=== PATIENT | female | born 1945 | race Caucasian/White ===

== ENCOUNTER 2018-01-16 10:07 | Emergency (ER) | payer MEDICARE, BC ==
--- NOTE | 2018-01-16 12:30 | EDM.PDOC ---
ED HPI GENERAL MEDICAL PROBLEM - General Chief Complaint: General Stated Complaint: KNEE PAIN Time Seen by Provider: 01/16/18 10:35 Source of Information: Reports: Patient History Limitations: Reports: No Limitations - History of Present Illness INITIAL COMMENTS - FREE TEXT/NARRATIVE: Patient is a 72 year old woman who got up from a chair last night and her right knee gave out on her and locked up on her. It is sore and it feels like her knee cap is out of place. There was no trauma to the knee and she has no other complaints. 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 Medication(s) Other Treatments WAREHOUSE ORDER SELECTOR: aleve right knee Pain Score (Numeric/FACES): 2 - Related Data Allergies Allergy/AdvReac Type Severity Reaction Status Date / Time aspirin Allergy Mild Headache Verified 01/16/18 10:42 chondroitin sulfate A Allergy Mild Rash Verified 01/16/18 10:42 [From DuoVisc Visco Elastic] hyaluronic acid Allergy Mild Rash Verified 01/16/18 10:42 [From DuoVisc Visco Elastic] Latex, Natural Rubber Allergy Mild Rash Verified 01/16/18 10:42 Home Meds: Home Meds Acetaminophen [Tylenol Arthritis] 650 mg PO DAILY 02/28/16 [History] Calcium Carbonate/Vitamin D3 [Calcium 500 + Vit D 400] 1 each PO DAILY 02/28/16 [History] Multivit-Min/FA/Lycopene/Lut [Senior Tabs] 1 each PO DAILY 02/28/16 [History] Omeprazole 20 mg PO DAILY 02/28/16 [History] Sennosides [Senna] 1 tab PO BID PRN 02/28/16 [History] Triamterene/Hydrochlorothiazid [Triamterene-HCTZ 37.5-25 MG] 1 each PO DAILY [History] ED ROS GENERAL - Review of Systems Review Of Systems: See Below Constitutional: Reports: No Symptoms HEENT: Reports: No Symptoms Respiratory: Reports: No Symptoms Cardiovascular: Reports: No Symptoms Endocrine: Reports: No Symptoms GI/Abdominal: Reports: No Symptoms : Reports: No Symptoms Musculoskeletal: Reports: Joint Pain Skin: Reports: Wound (Left leg) Neurological: Reports: No Symptoms Psychiatric: Reports: No Symptoms ED EXAM, GENERAL - Physical Exam Exam: See Below Exam Limited By: No Limitations General Appearance: Alert, WD/WN, No Apparent Distress Eye Exam: Bilateral Eye: EOMI, Normal Fundi, Normal Inspection Ears: Normal External Exam, Normal Canal, Hearing Grossly Normal, Normal TMs Ear Exam: Bilateral Ear: Auricle Normal, Canal Normal, TM normal Nose: Normal Inspection, Normal Mucosa, No Blood Throat/Mouth: Normal Inspection, Normal Lips, Normal Teeth, Normal Gums, Normal Oropharynx, Normal Voice, No Airway Compromise Head: Atraumatic, Normocephalic Neck: Normal Inspection, Supple, Non-Tender, Full Range of Motion Respiratory/Chest: No Respiratory Distress, Lungs Clear, Normal Breath Sounds, No Accessory Muscle Use, Chest Non-Tender Cardiovascular: Normal Peripheral Pulses, Regular Rate, Rhythm, No Edema, No Gallop, No JVD, No Murmur, No Rub GI/Abdominal: Normal Bowel Sounds, Soft, Non-Tender, No Organomegaly, No Distention, No Abnormal Bruit, No Mass Extremities: Leg Pain (Right knee), Limited Range of Motion (Right knee with crepitus.) Neurological: Alert, Oriented, CN II-XII Intact, Normal Cognition, Normal Gait, Normal Reflexes, No Motor/Sensory Deficits Psychiatric: Normal Affect, Normal Mood Course - Vital Signs Text/Narrative:: Uneventful ED course. Her right knee x-ray showed no obvious fracture on my initial reading. She was put into an rafael wrap and will put on a knee brace at her home. Since her knee locked, I ordered a right knee MRI to be done here on Wednesday with follow up with clinic after that for proper management. She will take alleve and tylenol for pain and will recheck prn. Last Recorded V/S: Last Vital Signs Temp 36.8 C 01/16/18 10:28 Pulse 52 L 01/16/18 10:28 Resp 16 01/16/18 10:28 BP 136/63 01/16/18 10:28 Pulse Ox 96 01/16/18 10:28 - Orders/Labs/Meds Orders: Active Orders 24 hr Category Date Time Status Knee 3V Rt [CR] Stat Exams 01/16/18 10:54 Taken Departure - Departure Time of Disposition: 12:35 Disposition: Home, Self-Care 01 Condition: Good Clinical Impression: Sprain of right knee Qualifiers: Encounter type: initial encounter Involved ligament of knee: unspecified ligament Qualified Code(s): S83.91XA - Sprain of unspecified site of right knee , initial encounter - Discharge Information Instructions: Knee Pain, Adult, Cryotherapy, Yzab-og-Wlor Referrals: PCP,None [Primary Care Provider] - Forms: ED Department Discharge Additional Instructions: The front office will call you tomorrow about a time for the MRI on Wednesday, if there are openings. Set up an appt with your primary care provider to get an appt with orthopedics. Leave the brace on until you have followed up with orthopedics and get a plan set up. - My Orders Last 24 Hours: My Active Orders 01/16/18 10:54 Knee 3V Rt [CR] Stat - Assessment/Plan Last 24 Hours: My Active Orders 01/16/18 10:54 Knee 3V Rt [CR] Stat
--- NOTE | 2018-01-17 03:51 | CR ---
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 There is a moderate size joint effusion. No acute abnormalities. [id number] [facility]
== END 2018-01-16 12:10 | disposition home or self-care (01) ==
LOC: LB.ED 10:07
DX: S83.91XA Sprain of unspecified site of right knee, initial encounter (principal); X50.0XXA Overexertion from strenuous movement or load, initial encounter; Z88.8 Allergy status to other drugs, medicaments and biological substances; Z79.899 Other long term (current) drug therapy
CPT/HCPCS: 73562-RT; 99283

== ENCOUNTER 2018-06-17 08:49 | Inpatient (IN) | payer MEDICARE, OTHER ==
[2018-06-17] MEDS ORDERED: Tuberculin, PPD 5 Units/0.1 ML 1 ML MDV IDERM ONE (14:47)
[2018-06-17] MEDS ORDERED: Polyethylene Glycol 3350 Powder 17 GM Packet PO PRN (14:48)
[2018-06-17] MEDS ORDERED: oxyCODONE 5 MG Tab PO PRN ×2 (14:48→18:00)
[2018-06-17] MEDS ORDERED: diphenhydrAMINE 25 MG Cap PO PRN (14:48)
--- NOTE | 2018-06-17 17:25 | PCM.HP ---
H&P History of Present Illness - General Date of Service: 06/17/18 Admit Problem/Dx: Admission Diagnosis/Problem Admission Diagnosis/Problem Pain management Source of Information: Patient History Limitations: Reports: No Limitations - History of Present Illness Initial Comments - Free Text/Narative: Pt is a 73 year old female who has had right knee arthroplasty done by Dr. Torrez at [facility]. She has been admitted for physical rehab to [facility]. Pt has been able to use her walker and is bearing weight well on her right knee. She is starting to get independent to toileting. No fever or chills. Tolerable post op pain in her knee. No complaints from patient. Improves with: Reports: None Worsens with: Reports: None Associated Symptoms: Denies: Confusion, Chest Pain, Cough, Diaphoresis, Fever/ Chills, Headaches, Nausea/Vomiting, Rash, Seizure, Shortness of Breath, Syncope , Weakness - Related Data Allergies/Adverse Reactions: Allergies Allergy/AdvReac Type Severity Reaction Status Date / Time aspirin Allergy Mild Headache Verified 01/16/18 10:42 chondroitin sulfate A Allergy Mild Rash Verified 01/16/18 10:42 [From DuoVisc Visco Elastic] hyaluronic acid Allergy Mild Rash Verified 01/16/18 10:42 [From DuoVisc Visco Elastic] Latex, Natural Rubber Allergy Mild Rash Verified 01/16/18 10:42 Home Medications: Home Meds Calcium Carbonate/Vitamin D3 [Calcium 500 + Vit D 400] 1 each PO DAILY 02/28/16 [History] Triamterene/Hydrochlorothiazid [Triamterene-HCTZ 37.5-25 MG] 1 each PO DAILY [History] Acetaminophen [Tylenol Arthritis] 1 tab PO Q6H PRN 06/17/18 [History] Esomeprazole Magnesium [Nexium 24Hr] 22.3 mg PO DAILY 06/17/18 [History] Polyethylene Glycol 3350 [MiraLAX] 17 gm PO DAILY PRN 06/17/18 [History] Sennosides/Docusate Sodium [Senna-Docusate Sodium Tablet] 2 tab PO BID PRN 06/17 [History] Warfarin [Coumadin] 5 mg PO DAILY 06/17/18 [History] diphenhydrAMINE [Benadryl] 50 mg PO Q6HR PRN 06/17/18 [History] oxyCODONE 10 mg PO Q4H PRN 06/17/18 [History] traMADol [Ultram] 100 mg PO Q6HR 06/17/18 [History] Past Medical History HEENT History: Reports: Cataract, Impaired Vision, Other (See Below) Other HEENT History: astigmatism Cardiovascular History: Reports: Arrhythmia, Blood Clots/VTE/DVT, Other (See Below) Other Cardiovascular History: Left BBB Gastrointestinal History: Reports: GERD, Other (See Below) Other Gastrointestinal History: current constipation 06/17/18 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, , Other (See Below) Other OB/BYN History: 4 pregnancies, 5 kids, hysterectomy Endocrine/Metabolic History: Reports: Obesity/BMI 30+ Oncologic (Cancer) History: Reports: Uterine, Other (See Below) Other Oncologic History: precancerous cells - Infectious Disease History Infectious Disease History: Reports: Chicken Pox, Measles, Mumps, Rheumatic Fever - Past Surgical History HEENT Surgical History: Reports: Tonsillectomy Cardiovascular Surgical History: Reports: Varicose, Vascular Surgery, Other ( See Below) Other Cardiovascular Surgeries/Procedures: "vein stripping" on left leg GI Surgical History: Reports: Colonoscopy, Other (See Below) Other GI Surgeries/Procedures: hiatal hernia sx Female Surgical History: Reports: D&C, Hysterectomy, Other (See Below) Other Female Surgeries/Procedures: complete hysterectomy Musculoskeletal Surgical History: Reports: Knee Replacement, Other (See Below) Other Musculoskeletal Surgeries/Procedures:: total right knee replacement, partial left knee replacement Oncologic Surgical History: Reports: Other (See Below) Other Oncologic Surgeries/Procedures: total hysterectomy Social & Family History - Tobacco Use Smoking Status *Q: Never Smoker - Caffeine Use Caffeine Use: Reports: Coffee, Soda Other Caffeine Use: 3 coffee/day - Alcohol Use Number of Drinks Per Day: 1 Date of Last Drink: 06/07/18 Time of Last Drink: 00:00 - Recreational Drug Use Recreational Drug Use: No H&P Review of Systems - Review of Systems: Review Of Systems: See Below General: Denies: Fever, Chills HEENT: Denies: Headaches, Sinus Congestion, Vertigo Pulmonary: Denies: Cough, Sputum Cardiovascular: Denies: Chest Pain, Lightheadedness Gastrointestinal: Denies: Abdominal Pain, Nausea, Vomiting Genitourinary: Denies: Dysuria, Frequency Musculoskeletal: Denies: Joint Pain, Joint Swelling, Muscle Pain, Muscle Stiffness Skin: Denies: Pruritis, Rash, Erythema Psychiatric: Denies: Confusion, Depression Neurological: Denies: Confusion, Numbness, Tingling, Gait Disturbance Exam - Exam Exam: See Below - Vital Signs Vital Signs: Last Vital Signs Temp 97.9 F 06/17/18 14:00 Pulse 58 L 06/17/18 14:00 Resp BP 150/43 H 06/17/18 14:00 Pulse Ox 96 06/17/18 14:00 Weight: 95.98 kg - Exam General: Alert, Oriented, 4 HEENT: PERRLA, Hearing Intact, Mucosa Moist & [place], Nares Patent, Normal Nasal Septum, Posterior Pharynx Clear, Conjunctiva Clear, EOMI, EACs Clear, TMs Clear Neck: Supple Lungs: Clear to Auscultation, Normal Respiratory Effort Cardiovascular: Regular Rate, Regular Rhythm GI/Abdominal Exam: Normal Bowel Sounds, Soft, Non-Tender, No Organomegaly, No Distention, No Abnormal Bruit, No Mass, Pelvis Stable Extremities: Normal Capillary Refill, Pedal Edema (2+ pitting B/l), Other (post op incision over the right knee. Minimal swelling of the knee. no bruising noted. no discahrge.) Peripheral Pulses: 2+: Radial (L), Radial (R), Dorsalis Pedis (L), Dorsalis Pedis (R) Skin: Warm, Other (clean incision with dressing over the right knee) - Problem List (1) S/P total knee arthroplasty SNOMED Code(s): 2238116527313, [id number], [id number] ICD Code: Z96.659 - PRESENCE OF UNSPECIFIED ARTIFICIAL KNEE JOINT Status: Acute Current Visit: Yes Problem List Initiated/Reviewed/Updated: Yes Orders Last 24hrs: Active Orders 24 hr Category Date Time Status Patient Status [ADT] Routine ADT 06/17/18 14:47 Active OT Evaluation and Treatment [CONS] Routine Cons 06/17/18 14:47 Active PT Evaluation and Treatment [CONS] Routine Cons 06/17/18 14:47 Active CULTURE MRSA SURVEY [RM] Routine Lab 06/17/18 17:15 Received Acetaminophen [Tylenol Arthritis Pain] Med 06/17/18 14:48 Active 650 mg PO Q6H PRN Calcium Carbonate/Vitamin D3 [Caltrate 600+D 1500 MG- Med 06/18/18 08:00 Active 400 Units] 1 tab PO DAILY Docusate Sodium/Sennosides [Senna Plus] Med 06/17/18 14:48 Active 2 tab PO BID PRN HCTZ/Triamterene [Dyazide 25-37.5 MG] Med 06/18/18 08:00 Active 1 each PO DAILY Pantoprazole [ProTONIX] Med 06/18/18 07:00 Active 40 mg PO ACBREAKFAST Polyethylene Glycol 3350 [MiraLAX] Med 06/17/18 14:48 Active 17 gm PO DAILY PRN Warfarin [Coumadin] Med 06/18/18 18:00 Active 5 mg PO DAILY@1800 diphenhydrAMINE [Benadryl] Med 06/17/18 14:48 Active 50 mg PO Q6HR PRN oxyCODONE Med 06/17/18 14:48 Active 10 mg PO Q4H PRN traMADol [Ultram] Med 06/17/18 18:00 Active 100 mg PO Q6HR Resuscitation Status Routine Resus Stat 06/17/18 14:47 Ordered Medication Orders Acetaminophen (Tylenol Arthritis Pain) 650 mg PO Q6H PRN PRN Reason: Pain Calcium Carbonate (Caltrate 600+D 1500 Mg-400 Units) 1 tab PO DAILY [facility] Diphenhydramine HCl (Benadryl) 50 mg PO Q6HR PRN PRN Reason: Itching Oxycodone HCl (Oxycodone) 10 mg PO Q4H PRN PRN Reason: Pain Pantoprazole Sodium (Protonix) 40 mg PO ACBREAKFAST [facility] Polyethylene Glycol (Miralax) 17 gm PO DAILY PRN PRN Reason: Constipation Senna/Docusate Sodium (Senna Plus) 2 tab PO BID PRN PRN Reason: Constipation Tramadol HCl (Ultram) 100 mg PO Q6HR [facility]E Triamterene/HCTZ (Dyazide 25-37.5 Mg) 1 each PO DAILY [facility] Warfarin Sodium (Coumadin) 5 mg PO DAILY@1800 [facility] Assessment/Plan Comment:: Assessment: S/p right knee arthroplasty for physical rehab Plan: pt has been doing well. Will continue her discharge medications. pain has been well controlled. No signs of infection around the wound. surgical incision healing well. Will have OT and PT work with patient. When she has attained good rehab, and independent with ADLs , will plan on discharge.
[2018-06-17] MEDS ORDERED: traMADol 50 MG Tab PO SCH (18:00)
[2018-06-17] MEDS: traMADol 50 MG Tab PO SCH (18:03)
[2018-06-17] MEDS: diphenhydrAMINE 25 MG Cap PO PRN (20:47)
[2018-06-17] MEDS: Acetaminophen 650 MG Tab.ER PO PRN (20:48)
[2018-06-18] MEDS: traMADol 50 MG Tab PO SCH ×4 (01:20→17:51)
[2018-06-18] MEDS: Pantoprazole 40 MG Tab.CR PO SCH (06:18)
[2018-06-18] MEDS: Hydrochlorothiazide/Triamterene 25-37.5 MG Cap PO SCH (08:06)
[2018-06-18] MEDS: Calcium Carbonate/Vitamin D3 1500 MG-400 Units Tab PO SCH (08:06)
[2018-06-18] MEDS: diphenhydrAMINE 25 MG Cap PO PRN (12:24)
[2018-06-18] MEDS: Warfarin 5 MG Tab PO SCH (17:52)
[2018-06-18] MEDS: Acetaminophen 650 MG Tab.ER PO PRN (19:40)
[2018-06-19] MEDS: Pantoprazole 40 MG Tab.CR PO SCH (06:17)
[2018-06-19] MEDS: traMADol 50 MG Tab PO SCH ×4 (06:18→18:18)
[2018-06-19] MEDS: Hydrochlorothiazide/Triamterene 25-37.5 MG Cap PO SCH (08:05)
[2018-06-19] MEDS: Calcium Carbonate/Vitamin D3 1500 MG-400 Units Tab PO SCH (08:06)
[2018-06-19] MEDS: diphenhydrAMINE 25 MG Cap PO PRN (09:06)
[2018-06-19] MEDS: Acetaminophen 650 MG Tab.ER PO PRN (15:11)
[2018-06-19] MEDS: Warfarin 5 MG Tab PO SCH (18:19)
[2018-06-20] MEDS: traMADol 50 MG Tab PO SCH ×4 (00:07→17:49)
[2018-06-20] MEDS: Pantoprazole 40 MG Tab.CR PO SCH (06:03)
[2018-06-20] MEDS: diphenhydrAMINE 25 MG Cap PO PRN ×2 (06:25→16:27)
[2018-06-20] MEDS: Calcium Carbonate/Vitamin D3 1500 MG-400 Units Tab PO SCH (07:36)
[2018-06-20] MEDS: Hydrochlorothiazide/Triamterene 25-37.5 MG Cap PO SCH (07:37)
[2018-06-20] MEDS: Warfarin 5 MG Tab PO SCH (17:48)
[2018-06-20] MEDS: Acetaminophen 650 MG Tab.ER PO PRN (17:49)
[2018-06-21] MEDS: traMADol 50 MG Tab PO SCH ×4 (00:38→17:54)
[2018-06-21] MEDS: Calcium Carbonate/Vitamin D3 1500 MG-400 Units Tab PO SCH (07:42)
[2018-06-21] MEDS: Pantoprazole 40 MG Tab.CR PO SCH (07:42)
[2018-06-21] MEDS: Hydrochlorothiazide/Triamterene 25-37.5 MG Cap PO SCH (07:42)
[2018-06-21] MEDS: Acetaminophen 650 MG Tab.ER PO PRN ×2 (07:46→14:53)
[2018-06-21] MEDS: Triamcinolone Acetonide 0.1% Crm 30 GM Tube TOP SCH ×2 (14:49→20:00)
[2018-06-21] MEDS: Warfarin 5 MG Tab PO SCH (17:57)
[2018-06-21] MEDS: diphenhydrAMINE 25 MG Cap PO PRN (17:59)
[2018-06-22] MEDS: traMADol 50 MG Tab PO SCH ×4 (06:22→17:26)
[2018-06-22] MEDS: diphenhydrAMINE 25 MG Cap PO PRN ×2 (06:29→16:41)
[2018-06-22] MEDS: Pantoprazole 40 MG Tab.CR PO SCH (06:29)
[2018-06-22] MEDS: Acetaminophen 650 MG Tab.ER PO PRN ×2 (06:31→17:27)
[2018-06-22] MEDS: Triamcinolone Acetonide 0.1% Crm 30 GM Tube TOP SCH ×3 (08:04→19:21)
[2018-06-22] MEDS: Hydrochlorothiazide/Triamterene 25-37.5 MG Cap PO SCH (08:04)
[2018-06-22] MEDS: Calcium Carbonate/Vitamin D3 1500 MG-400 Units Tab PO SCH (08:04)
[2018-06-22] MEDS: Warfarin 5 MG Tab PO SCH (17:26)
[2018-06-23] MEDS: diphenhydrAMINE 25 MG Cap PO PRN ×2 (00:37→07:33)
[2018-06-23] MEDS: Acetaminophen 650 MG Tab.ER PO PRN (00:37)
[2018-06-23] MEDS: traMADol 50 MG Tab PO SCH ×2 (00:38→06:45)
[2018-06-23] MEDS: Pantoprazole 40 MG Tab.CR PO SCH (06:45)
[2018-06-23] MEDS: Calcium Carbonate/Vitamin D3 1500 MG-400 Units Tab PO SCH (07:33)
[2018-06-23] MEDS: Hydrochlorothiazide/Triamterene 25-37.5 MG Cap PO SCH (07:33)
[2018-06-23] MEDS: Triamcinolone Acetonide 0.1% Crm 30 GM Tube TOP SCH (07:34)
--- NOTE | 2018-06-23 09:56 | PCM.DCSUM1 ---
Discharge Summary - Hospital Course Free Text/Narrative:: Pt is S/p right knee arthroplasty, who was admitted for OT and PT post op. Pt has done well with PT and has been able to do ADLS with walker. Able to weight bear on right lower extremity. No excessive pain or swelling. Pt has had uneventful post op periods as far a surgery. Pt has developed urticaria over the past 2 days. She was started on traimcinolone cream, but now the rah is scattered and generalized. Rash appears with itching and disappear. no other constitutional symptoms. I have advised patient to take benadryl 50mg twice daily and zantac 150mg twice daily to help block the histamine receptor under skin. I want to avoid Kenalog injection or prednisone, as they hamper wound healing. Pt is discharge today. Advised to followup with Coumadin clinic on 06/28/18. Continue outpatient physical therapy. She does have followup with ortho on . Brief History: S/p right knee arhtroplasty admitted for OT and PT. Kindly see H& P Diagnosis: Stroke: No - Discharge Data Discharge Date: 06/23/18 Discharge Disposition: Home, Self-Care 01 Condition: Good - Discharge Diagnosis/Problem(s) (1) S/P total knee arthroplasty SNOMED Code(s): 7759749548190, [id number], [id number] ICD Code: Z96.659 - PRESENCE OF UNSPECIFIED ARTIFICIAL KNEE JOINT Status: Acute Current Visit: Yes - Patient Summary/Data Consults: Consultations 06/17/18 14:47 OT Evaluation and Treatment [CONS] Routine Please Evaluate and Treat. OT Reason for Consult: ADL's This query below is only for informational purposes and is not editable. Admission Diagnosis/Problem: Pain management PT Evaluation and Treatment [CONS] Routine Please Evaluate and Treat. PT Reason for Consult: Post op Ortho Surgery This query below is only for informational purposes and is not editable. Admission Diagnosis/Problem: Pain management - Patient Instructions Diet: Heart Healthy Diet Fluid Restriction: 1500 mL Activity: As Tolerated Wound/Incision Care: Keep Operative Site/Wound Site Clean and Dry Notify Provider of: Fever, Increased Pain, Swelling and Redness, Drainage, Nausea and/or Vomiting - Discharge Plan *PRESCRIPTION DRUG MONITORING PROGRAM REVIEWED*: Not Applicable *COPY OF PRESCRIPTION DRUG MONITORING REPORT IN PATIENT KONSTANTIN: Not Applicable Prescriptions/Med Rec: Polyethylene Glycol 3350 [MiraLAX] 17 gm PO DAILY PRN #10 packet PRN Reason: Constipation Home Medications: Home Meds Calcium Carbonate/Vitamin D3 [Calcium 500 + Vit D 400] 1 each PO DAILY 02/28/16 [History] Triamterene/Hydrochlorothiazid [Triamterene-HCTZ 37.5-25 MG] 1 each PO DAILY [History] Acetaminophen [Tylenol Arthritis] 1 tab PO Q6H PRN 06/17/18 [History] Esomeprazole Magnesium [Nexium 24Hr] 22.3 mg PO DAILY 06/17/18 [History] Sennosides/Docusate Sodium [Senna-Docusate Sodium Tablet] 2 tab PO BID PRN 06/17 [History] Warfarin [Coumadin] 5 mg PO DAILY 06/17/18 [History] diphenhydrAMINE [Benadryl] 50 mg PO Q6HR PRN 06/17/18 [History] traMADol [Ultram] 100 mg PO Q6HR 06/17/18 [History] Polyethylene Glycol 3350 [MiraLAX] 17 gm PO DAILY PRN #10 packet 06/23/18 [Rx] Patient Handouts: Fall Prevention in the Home, [id number], Total Knee Replacement, Care After, [id number] - Discharge Summary/Plan Comment DC Time >30 min.: Yes - General Info Date of Service: 06/23/18 Functional Status: Reports: Pain Controlled, Tolerating Diet, Ambulating, Urinating - Review of Systems General: Denies: Fever, Weakness HEENT: Denies: Glasses, Headaches, Sinus Congestion Pulmonary: Denies: Shortness of Breath, Cough, Sputum, Hemoptysis Cardiovascular: Denies: Chest Pain, Lightheadedness Gastrointestinal: Denies: Abdominal Pain, Nausea, Vomiting Genitourinary: Denies: Dysuria, Frequency Musculoskeletal: Denies: Joint Pain, Joint Swelling Skin: Reports: Rash. Denies: Bruising, Pruritis - Patient Data Vitals - Most Recent: Last Vital Signs Temp 97.7 F 06/23/18 07:38 Pulse 84 06/23/18 07:38 Resp 18 06/23/18 07:38 BP 121/66 06/23/18 07:38 Pulse Ox 96 06/23/18 07:38 Weight - Most Recent: 91.535 kg Med Orders - Current: Current Medications Acetaminophen (Tylenol Arthritis Pain) 650 mg PO Q6H PRN PRN Reason: Pain Last Admin: 06/23/18 00:37 Dose: 650 mg Calcium Carbonate (Caltrate 600+D 1500 Mg-400 Units) 1 tab PO DAILY [facility] Last Admin: 06/23/18 07:33 Dose: 1 tab Diphenhydramine HCl (Benadryl) 25 - 50 mg PO Q6HR PRN PRN Reason: Itching Last Admin: 06/23/18 07:33 Dose: 25 mg Oxycodone HCl (Oxycodone) 5 - 10 mg PO Q4H PRN PRN Reason: Pain Pantoprazole Sodium (Protonix) 40 mg PO ACBREAKFAST [facility] Last Admin: 06/23/18 06:45 Dose: 40 mg Polyethylene Glycol (Miralax) 17 gm PO DAILY PRN PRN Reason: Constipation Last Admin: 06/19/18 19:44 Dose: 17 gm Senna/Docusate Sodium (Senna Plus) 1 - 2 tab PO BID PRN PRN Reason: Constipation Last Admin: 06/18/18 19:40 Dose: 1 tab Tramadol HCl (Ultram) 50 - 100 mg PO Q6HR [facility] Last Admin: 06/23/18 06:45 Dose: Not Given Triamcinolone Acetonide (Kenalog 0.1% Crm) 1 gm TOP TID [facility] Last Admin: 06/23/18 07:34 Dose: 1 applic Triamterene/HCTZ (Dyazide 25-37.5 Mg) 1 each PO DAILY [facility] Last Admin: 06/23/18 07:33 Dose: 1 each Warfarin Sodium (Coumadin) 5 mg PO DAILY@1800 [facility] Last Admin: 06/22/18 17:26 Dose: 5 mg Discontinued Medications Diphenhydramine HCl (Benadryl) 50 mg PO Q6HR PRN PRN Reason: Itching Oxycodone HCl (Oxycodone) 10 mg PO Q4H PRN PRN Reason: Pain Senna/Docusate Sodium (Senna Plus) 2 tab PO BID PRN PRN Reason: Constipation Tramadol HCl (Ultram) 100 mg PO Q6HR [facility] Tuberculin PPD (Aplisol) 5 unit IDERM ONETIME ONE Stop: 06/17/18 14:48 Last Admin: 06/18/18 11:06 Dose: 5 unit - Exam General: Reports: Alert, Oriented HEENT: Reports: Pupils Equal, Pupils Reactive, EOMI, Mucous Membr. Moist/[place]: Reports: Supple Lungs: Reports: Clear to Auscultation, Normal Respiratory Effort Cardiovascular: Reports: Regular Rate, Regular Rhythm GI/Abdominal Exam: Normal Bowel Sounds, Soft, Non-Tender, No Organomegaly, No Distention, No Abnormal Bruit, No Mass, Pelvis Stable Extremities: Other (right knee: the wound is healing well. no erythema aorund the knee. weight bearing.) Skin: Reports: Warm, Rash (Scatterred macular rash with wheal and flare reaction )
== END 2018-06-23 12:37 | disposition home or self-care (01) | DRG 561 ==
LOC: UNDOADMIN 08:49 → LB.MS 08:49 → UNDOADMIN 13:40 → LB.MS 13:40
PROVIDERS: ADMIT Family Medicine; ATTEND Family Medicine
DX: Z47.1 Aftercare following joint replacement surgery (principal); Z96.651 Presence of right artificial knee joint; L50.9 Urticaria, unspecified; K21.9 Gastro-esophageal reflux disease without esophagitis; K59.00 Constipation, unspecified; E66.9 Obesity, unspecified; H54.7 Unspecified visual loss; I44.7 Left bundle-branch block, unspecified; Z68.36 Body mass index [BMI] 36.0-36.9, adult; Z79.899 Other long term (current) drug therapy; Z79.01 Long term (current) use of anticoagulants; Z88.8 Allergy status to other drugs, medicaments and biological substances; Z86.718 Personal history of other venous thrombosis and embolism; Z91.040 Latex allergy status; Z88.6 Allergy status to analgesic agent
CPT/HCPCS: 85610; 86580; 97110-GP; 97161-GP; 97165-GO; 97530-GP; 97535-GO; A9270-GY

== ENCOUNTER 2021-08-28 10:13 | Emergency (ER) | payer MEDICARE, OTHER | END 2021-08-28 11:40 | disposition home or self-care (01) | LOC: LB.ED 10:13 | DX: R42 Dizziness and giddiness (principal); I10 Essential (primary) hypertension; Z91.040 Latex allergy status; Z88.8 Allergy status to other drugs, medicaments and biological substances | CPT/HCPCS: 36415; 71045; 80053; 84484; 85025; 99284-25 ==